=== PATIENT | female | born 1970 | race Caucasian/White ===

== ENCOUNTER 2018-01-26 23:02 | Emergency (ER) | payer MEDICAID, OTHER ==
[~2018-01-26] VITALS: Ht 170.2 cm; Wt 63.5 kg
[2018-01-26 23:16] VITALS: BP 104/89
--- NOTE | 2018-01-26 23:24 | NUR ---
DR. MAGANA AT BEDSIDE FOR EVAL.
--- NOTE | 2018-01-26 23:39 | NUR ---
Patient discharged to home in stable condition. Written and verbal after care instructions given. Patient verbalizes understanding of instruction. instucted pt not to drive. pt verbalize understanding. vss.
== END 2018-01-26 23:40 | disposition home or self-care (01) ==
LOC: ER 23:11
DX: M54.2 Cervicalgia (principal); Z76.0 Encounter for issue of repeat prescription; G89.29 Other chronic pain; Z88.2 Allergy status to sulfonamides; Z88.8 Allergy status to other drugs, medicaments and biological substances; Z60.2 Problems related to living alone; F41.9 Anxiety disorder, unspecified; F32.9 Major depressive disorder, single episode, unspecified
CPT/HCPCS: A4606; Z7610

== ENCOUNTER 2018-09-15 22:30 | Emergency (ER) | payer MEDICAID ==
[~2018-09-15] VITALS: Ht 167.6 cm; Wt 67.1 kg
--- NOTE | 2018-09-15 22:50 | NUR ---
BIBS. C/O "BILAT HAND FOOT PAIN" -SOB -N/V AOX4. -DIZZY,
[2018-09-16] MEDS ORDERED: KETOROLAC TROMETHAMINE INJ 60 MG/2 ML VIAL IM ONE
[2018-09-16] MEDS ORDERED: oxyCODONE/APAP (5/325 MG) 1 UDTAB TABLET PO ONE
[2018-09-16] MEDS ORDERED: oxyCODONE/APAP (5/325 MG) 1 UDTAB TABLET ONE (00:06)
[2018-09-16] MEDS ORDERED: KETOROLAC TROMETHAMINE INJ 30 MG/ML VIAL ONE (00:06)
[2018-09-16 00:38] VITALS: BP 118/77
== END 2018-09-16 00:39 | disposition home or self-care (01) ==
LOC: ER 22:34
DX: G62.9 Polyneuropathy, unspecified (principal); F41.9 Anxiety disorder, unspecified; F32.9 Major depressive disorder, single episode, unspecified; M79.18 Myalgia, other site; Z88.2 Allergy status to sulfonamides; Z88.1 Allergy status to other antibiotic agents; Z88.6 Allergy status to analgesic agent; Z60.2 Problems related to living alone
CPT/HCPCS: 99283; J1885

== ENCOUNTER 2018-10-05 00:07 | Emergency (ER) | payer MEDICAID ==
[~2018-10-05] VITALS: Ht 170.2 cm; Wt 67.1 kg
[2018-10-05 01:50] VITALS: BP 123/71
== END 2018-10-05 02:18 | disposition home or self-care (01) ==
LOC: ER 00:18
DX: G89.29 Other chronic pain (principal); M79.10 Myalgia, unspecified site; M79.2 Neuralgia and neuritis, unspecified; I10 Essential (primary) hypertension; F41.9 Anxiety disorder, unspecified; F32.9 Major depressive disorder, single episode, unspecified; Z60.2 Problems related to living alone; Z88.6 Allergy status to analgesic agent; Z88.2 Allergy status to sulfonamides; Z88.1 Allergy status to other antibiotic agents
CPT/HCPCS: Z7502

== ENCOUNTER 2019-04-09 21:38 | Emergency (ER) | payer MEDICAID ==
[~2019-04-09] VITALS: Ht 170.2 cm; Wt 67.6 kg
[2019-04-09 22:21] VITALS: BP 115/69
--- NOTE | 2019-04-09 22:31 | NUR ---
DR ROMERO AT THE BED SIDE
--- NOTE | 2019-04-09 22:41 | NUR ---
Patient discharged to home in stable condition. RX and Written and verbal after care instructions given. Patient verbalizes understanding of instruction.
== END 2019-04-09 22:43 | disposition home or self-care (01) ==
LOC: ER 21:40
DX: G89.29 Other chronic pain (principal); I10 Essential (primary) hypertension; F41.9 Anxiety disorder, unspecified; F32.9 Major depressive disorder, single episode, unspecified; M79.2 Neuralgia and neuritis, unspecified; Z88.1 Allergy status to other antibiotic agents; Z88.2 Allergy status to sulfonamides; Z60.2 Problems related to living alone

== ENCOUNTER 2019-04-16 16:00 | Emergency (ER) | payer MEDICAID ==
[~2019-04-16] VITALS: Ht 170.2 cm; Wt 63.0 kg
[2019-04-16 16:07] VITALS: BP 140/85
[2019-04-16] MEDS ORDERED: KETOROLAC TROMETHAMINE INJ 30 MG/ML VIAL ONE (17:03)
[2019-04-16] MEDS: KETOROLAC TROMETHAMINE INJ 60 MG/2 ML VIAL IM ONE (17:28)
== END 2019-04-16 17:29 | disposition home or self-care (01) ==
LOC: ER 16:00
DX: G89.29 Other chronic pain (principal); I10 Essential (primary) hypertension; F41.9 Anxiety disorder, unspecified; F32.9 Major depressive disorder, single episode, unspecified; Z88.1 Allergy status to other antibiotic agents; Z88.2 Allergy status to sulfonamides; Z60.2 Problems related to living alone
CPT/HCPCS: 96372; 99283; J1885

== ENCOUNTER 2019-04-29 22:26 | Emergency (ER) | payer MEDICAID ==
[~2019-04-29] VITALS: Ht 167.6 cm; Wt 63.5 kg
[2019-04-29 22:34] VITALS: BP 123/73
--- NOTE | 2019-04-29 22:40 | NUR ---
BIBSELF C/O CHRONIC BILATERAL UPPER AND LOWER EXTREMITY NERVE PAIN
--- NOTE | 2019-04-29 22:42 | NUR ---
SUJATHA FAM A PAC at the bed side
[2019-04-29] MEDS ORDERED: HYDROMORPHONE HCL 2 MG TABLET ONE (22:51)
[2019-04-29] MEDS ORDERED: ONDANSETRON 4 MG TAB.RAPDIS ONE (22:52)
[2019-04-29] MEDS ORDERED: HYDROMORPHONE HCL 2 MG TABLET PO PRN (23:00)
[2019-04-29] MEDS ORDERED: ONDANSETRON 4 MG TAB.RAPDIS SL ONE (23:00)
--- NOTE | 2019-04-29 23:42 | NUR ---
Patient discharged to home in stable condition. rx and Written and verbal after care instructions given. Patient verbalizes understanding of instruction.
== END 2019-04-29 23:40 | disposition home or self-care (01) ==
LOC: ER 22:26
DX: G89.29 Other chronic pain (principal); M79.2 Neuralgia and neuritis, unspecified; I10 Essential (primary) hypertension; F41.9 Anxiety disorder, unspecified; F32.9 Major depressive disorder, single episode, unspecified; Z88.1 Allergy status to other antibiotic agents; Z88.2 Allergy status to sulfonamides; Z60.2 Problems related to living alone
CPT/HCPCS: 99283; Q0162

== ENCOUNTER 2019-05-05 23:06 | Emergency (ER) | payer MEDICAID ==
[~2019-05-05] VITALS: Ht 167.6 cm; Wt 63.5 kg
[2019-05-05 23:22] VITALS: BP 122/87
--- NOTE | 2019-05-05 23:23 | NUR ---
"C/C PAIN IN ALL EXTREMITIES 4YRS, HX OF NEURALGIA, 2MG DILAUDID BID, SOMA 350MG TID" PT TO BED 7, DENIES ANY SOB, PT AAOX4, NAD NOTED, VSS, PENDING MD DEUTSCH
[2019-05-05] MEDS ORDERED: HYDROMORPHONE HCL 2 MG TABLET ONE (23:42)
[2019-05-05] MEDS: HYDROMORPHONE HCL 2 MG TABLET PO PRN (23:43)
--- NOTE | 2019-05-06 | NUR ---
PT REFUSES TO LEAVE, PT HAS ALL DISCHARGE PAPERWORK GIVEN BY DR. KASPER, PT REFUSES TO SIGN, PT STATES SHE HAS TO HAVE A PRESCRIPTION, PER DR. KASPER, SHE HAS REC'D MULTIPLE PRESCRIPTIONS FROM [facility], AND WOULD NEED TO FOLLOW UP WITH PMD. PT WAS MEDICATED FOR CHRONIC PAIN, PT REQUESTS TO SEE DR. KASPER, PER MD, SHE IS DISCHARGED ALREADY. SECURITY CALLED, STILL PT REFUSES TO LEAVE. WILL CALL [employer] AT THIS TIME
[2019-05-06] MEDS: HYDROMORPHONE HCL 2 MG TABLET PO PRN (00:09)
--- NOTE | 2019-05-06 00:43 | NUR ---
pt walked out of emergency room
== END 2019-05-06 00:44 | disposition home or self-care (01) ==
LOC: ER 23:06
DX: G89.29 Other chronic pain (principal); M79.2 Neuralgia and neuritis, unspecified; I10 Essential (primary) hypertension; F41.9 Anxiety disorder, unspecified; F32.9 Major depressive disorder, single episode, unspecified; Z88.2 Allergy status to sulfonamides; Z88.1 Allergy status to other antibiotic agents; Z88.6 Allergy status to analgesic agent; Z60.2 Problems related to living alone